=== PATIENT | male | born 1995 | race Caucasian/White ===

== ENCOUNTER 2017-01-11 02:12 | Emergency (ER) | payer SELFPAY ==
[2017-01-11 02:12] VITALS: BMI 26.6
[2017-01-11 02:35] VITALS: BP 126/86; PULSE 63; RESP 16; TEMP 97.5; O2SAT 100
--- NOTE | 2017-01-11 02:49 | ED PDOC ---
HPI: Chest Pain Time Seen by Provider: 01/11/17 02:33 Chief Complaint (Nursing): Chest Pain Additional Complaint(s): 21yo M with PMHx depresssion c/o decreased HR and kidney pain. decreased HR x1 day, a/w reproducible chest wall pain. b/l kidney pain x3 days after taking doxycycline which pt stopped himself and started herbal supplements x1 week. of note, was treated with azithromycin x2 weeks ago for chlamydia, had sexual intercourse afterwards, treated with doxycycline. Denies fever, nausea, vomiting , SOB, abd pain, dysuria, hematuria. Denies drug use. Stopped zoloft 6 months ago. Denies SI/HI. Per chart review, pt evaluated at [facility] ED 12/31/16 recently for male issue. d /c with doxycycline for epididymitis. Neg G/C. PMD: Dr. Babita Gavin Past Medical History Vital Signs: Last Vital Signs Temp 97.5 F L 01/11/17 02:33 Pulse 63 01/11/17 02:33 Resp 16 01/11/17 02:33 BP 126/86 01/11/17 02:33 Pulse Ox 100 01/11/17 03:11 - Medical History PMH: Back Problems, Depression, Sexually Transmitted Disease Denies: HIV, HTN, Seizures - Surgical History Surgical History: No Surg Hx - Family History Family History: States: Unknown Family Hx - Social History Current smoker - smoking cessation education provided: No Alcohol: None Drugs: Denies - Immunization History Hx Tetanus Toxoid Vaccination: Yes Hx Influenza Vaccination: Yes Hx Pneumococcal Vaccination: No - Home Medications Home Medications: Ambulatory Orders Medication Instructions Recorded Doxycycline Monohydrate 100 mg PO BID #28 tablet 12/31/16 - Allergies Allergies/Adverse Reactions: Allergies Allergy/AdvReac Type Severity Reaction Status Date / Time No Known Allergies Allergy Verified 09/16/16 03:02 KIANA Risk Score for UA/NSTEMI - KIANA Risk Score Age > 64: NO 3 or more CAD Risk Factors: NO Known CAD (Stenosis greater than 50%): NO Aspirin use in past 7 days: NO Severe Angina: NO EKG ST changes greater than 0.5mm: NO KIANA Score: 0 Risk %: 5% Review of Systems ROS Statement: Except As Marked, All Systems Reviewed And Found Negative Cardiovascular: Positive for: Chest Pain (reproducible), Other (bradycardia) Genitourinary Male: Positive for: Other (b/l kidney pain) Physical Exam - Reviewed Nursing Documentation Reviewed: Yes Vital Signs Reviewed: Yes - Physical Exam Appears: Positive for: Non-toxic, No Acute Distress Head Exam: Positive for: ATRAUMATIC, NORMAL INSPECTION Skin: Positive for: Warm, Dry Eye Exam: Positive for: Normal appearance. Negative for: Scleral icterus Cardiovascular/Chest: Positive for: Regular Rate, Rhythm. Negative for: Chest Non Tender (left sternal border TTP, reproducible) Respiratory: Positive for: Normal Breath Sounds Gastrointestinal/Abdominal: Positive for: Normal Exam, Soft. Negative for: Tenderness Back: Positive for: R CVA Tenderness (minimal). Negative for: L CVA Tenderness Extremity: Positive for: Normal ROM. Negative for: Tenderness, Pedal Edema Neurologic/Psych: Positive for: Alert, Oriented - Laboratory Results Result Diagrams: 01/11/17 03:03 01/11/17 03:03 - ECG O2 Sat by Pulse Oximetry: 100 Medical Decision Making Medical Decision Makin DDx costochondritis, UTI, drug intoxication, dehydration, supplement interaction CBC, CMP, UA, urine drug screen, troponin EKG sinus malcolm reassessment 0345 all labs negative/WNL d/c home, c/w doxycycline. stop herbal supplements. FU PMD Disposition - Clinical Impression Clinical Impression: Atypical chest pain - Disposition Disposition Time: 03:49 Condition: STABLE Instructions: Noncardiac Chest Pain (ED)
[2017-01-11 03:07] LABS: BASO # 0.1 K/uL (0.0-0.2); EOS # 0.2 K/uL (0.0-0.7); EOS % 3.3 % (0.0-4.0); HEMATOCRIT 45.5 % (35.0-51.0); LYMPH # 4.9 K/uL (1.0-4.3); LYMPH % 67.7 % (20.0-40.0); MEAN CELL VOLUME 79.1 fl (80.0-94.0); MEAN CORPUSCULAR HEMOGLOBIN 25.8 pg (27.0-31.0); MEAN CORPUSCULAR HGB CONC 32.7 g/dL (33.0-37.0); MEAN PLATELET VOLUME 7.8 fl (7.2-11.7); MONO # 0.4 K/uL (0.0-0.8); NEUT # 1.6 K/uL (1.8-7.0); NRBC % 0.1 % (0.0-0.0); RED CELL DISTRIBUTION WIDTH 14.4 % (11.5-14.5); WHITE BLOOD COUNT 7.2 K/uL (4.8-10.8)
[2017-01-11 03:13] LABS: CHLORIDE 105 mmol/L (98-107); POTASSIUM 3.9 MMOL/L (3.6-5.0); SODIUM 139 mmol/l (132-148)
[2017-01-11 03:15] LABS: AST/SGOT 41 U/L (17-59); BILIRUBIN,TOTAL 0.6 mg/dl (0.2-1.3); CARBON DIOXIDE 22 mmol/L (22-30); GFR AFRICAN-AMERICAN > 60
[2017-01-11 03:16] LABS: ALB/GLOB RATIO 1.3 (1.0-2.1); ALKALINE PHOSPHATASE 50 U/L (38-126); ALT/SGPT 52 U/L (21-72); BLOOD UREA NITROGEN 13 mg/dl (9-20); CALCIUM 9.3 mg/dL (8.4-10.2); GLUCOSE,RANDOM 111 mg/dL (75-110); TOTAL PROTEIN 7.6 G/DL (6.3-8.2)
[2017-01-11 03:23] LABS: RBC URINE 1 /hpf (0-3); URINE BILIRUBIN NEGATIVE (NEGATIVE); URINE BLOOD NEGATIVE (NEGATIVE); URINE COLOR YELLOW (YELLOW); URINE GLUCOSE (UA) NEG (Normal); URINE KETONE NEGATIVE (NEGATIVE); URINE LEUKOCYTE ESTERASE NEG Leu/uL (Negative); URINE PROTEIN NEGATIVE (NEGATIVE); URINE UROBILINOGEN 0.2-1.0 mg/dL (0.2-1.0); WBC URINE 1 /hpf (0-5)
== END 2017-01-11 04:01 | disposition home or self-care (01) ==
LOC: H.ER 02:12
DX: R07.89 Other chest pain (principal)
CPT/HCPCS: 80053; 81003; 84484; 85025; 99283; G0480